=== PATIENT | female | born 1990 | race Caucasian/White ===

== ENCOUNTER → 2018-04-17 | Outpatient (CLI) | payer OTHER ==
[~2018-04-17] MED LIST: ACHD5005 PO
--- NOTE | 2018-04-17 13:54 | Diagnostic Imaging Report ---
INDICATION: Palpable lump in the posterior right occipital region. TECHNIQUE: Multiple real-time grayscale sonographic images were obtained of the right occipital soft tissues in the area of palpable concern. CORRELATION STUDY: None. FINDINGS: Just deep to the subcutaneous tissues is an elongated oval-shaped peripherally hypoechoic nodule. Slight central echogenic focus is noted. Minimal central vascular blood flow. Imaging features favor probable small lymph node measuring 12 x 12 x 3 mm. IMPRESSION: 1. Palpable abnormality corresponds to a probable small lymph node. Followup evaluation should be based on clinical findings. Dictated by: Dictated on workstation # [id number]
== END ==
LOC: RAD 08:50
PROVIDERS: ATTEND Surgery
DX: R22.0 Localized swelling, mass and lump, head (principal)
CPT/HCPCS: 76536

== ENCOUNTER 2018-04-29 05:30 | Outpatient (CLI) | payer OTHER ==
[~2018-04-29] VITALS: Ht 160 cm; Wt 81.6 kg
[2018-05-02] MEDS ORDERED: ACHD5005 PO (09:08)
== END 2018-04-29 13:55 | disposition home or self-care (01) ==
LOC: PREOP 05:30
PROVIDERS: ATTEND Surgery
DX: Z01.818 Encounter for other preprocedural examination (principal)

== ENCOUNTER 2018-05-02 06:00 | Day surgery (SDC) | payer OTHER ==
[~2018-05-02] VITALS: Ht 160 cm; Wt 81.6 kg
--- OUTSIDE RECORDS SUMMARY | 2018-05-02 06:09 | XMS REPORT ---
Author Author CINDY POTTS [facility] eClinicalWorks Address Unknown Phone Unavailable Care Team Providers Care Framing Mechanic Name Role Phone CINDY POTTS CP Unavailable Allergies No Known Allergies Problems Problem Type Condition Code Onset Dates Condition Status Problem ADD (attention deficit disorder) F90.0 Active Problem Herpes B00.9 Active Problem Tension headache G44.209 Active Assessment Burning with urination R30.0 Active Medications No Known Medications Procedures Procedure Coding System Code Date URINE CULTURE/COLONY COUNT CPT-4 17064 Oct 24, 2015 URINALYSIS, AUTO, W/O SCOPE CPT-4 18773 Oct 24, 2015 Results Name Result Date Reference Range Unit Abnormality Flag UA LONG DIP (IN HOUSE) ----CALVIN ++ 20151024 ----NIT negative 20151024 ----Exp date Jul 201620151024 ----Lot # [id number] 20151024 ----SG >=1.030 20151024 ----KET negative 20151024 ----SANTOS negative 20151024 ----GLU negative 20151024 ----Odor no 20151024 ----pH 6.0 20151024 ----BLO ++ 20151024 ----URO 0.2 20151024 ----Protein + 20151024 ----Lot # [id number] [id number] ----Exp date Oct 201620151024 ----Clarity cloudy 20151024 ----Color yellow 20151024 CULTURE, URINE ----Result 1 Escherichia coli 20151024 A ----Urine Culture, Routine Final report [id number] A Summary Purpose eClinicalWorks Submission
--- OUTSIDE RECORDS SUMMARY | 2018-05-02 06:09 | XMS REPORT ---
Author CINDY Fay Organization eClinical[employer] Address Unknown Phone Unavailable Care Team Providers Care Jewel Bearing Broacher Name Role Phone CINDY POTTS Unavailable Allergies No Known Allergies Problems Problem Type Condition Code Onset Dates Condition Status Problem ADD (attention deficit disorder) F90.0 Active Problem Herpes B00.9 Active Problem Tension headache G44.209 Active Assessment Burning with urination R30.0 Active Medications Medication Code System Code Instructions Start Date End Date Status Dosage Adderall [facility] [address]-52 30 MG Orally one in am and one at noon one tablet Results No Known Results Summary Purpose eClinicalWorks Submission
--- OUTSIDE RECORDS SUMMARY | 2018-05-02 06:09 | XMS REPORT ---
Author Author CINDY POTTS [facility] Address [address] [place] [address] Care Team Providers Care Instrument Installer Name Role Phone CINDY POTTS Unavailable PROBLEMS Type Condition ICD9-CM Code [id number] Code Onset Dates Condition Status SNOMED Code Problem Anxiety F41.9 Active 40259402 Problem ADD (attention deficit disorder) F90.0 Active 739782245 Problem Tension headache G44.209 Active 159540600 Problem Herpes B00.9 Active 32667651 ALLERGIES Unknown Allergies SOCIAL HISTORY No smoking Hx information available PLAN OF CARE VITAL SIGNS MEDICATIONS Medication Instructions Dosage Frequency Start Date End Date Duration Status Adderall 20 mg Orally 2 times a day TAKE ONE TABLET BY MOUTH IN THE MORNING AND ONE TABLET AT NOON 12h 13 Oct, 2016 28 days Active RESULTS No Results PROCEDURES No Known procedures IMMUNIZATIONS No Known Immunizations
--- OUTSIDE RECORDS SUMMARY | 2018-05-02 06:09 | XMS REPORT ---
Author CINDY Fay Organization eClinicalWorks Address Unknown Phone Unavailable Care Team Providers Care Access Rep Name Role Phone CINDY POTTS Unavailable Allergies No Known Allergies Problems Problem Type Condition Code Onset Dates Condition Status Problem ADD (attention deficit disorder) F90.0 Active Problem Herpes B00.9 Active Problem Tension headache G44.209 Active Medications Medication Code System Code Instructions Start Date End Date Status Dosage Ceftin [facility] [address]-49 250 MG Orally Twice a day Oct 24, 2015 Nov 03, 2015 1 tablet Results No Known Results Summary Purpose eClinicalWorks Submission
--- OUTSIDE RECORDS SUMMARY | 2018-05-02 06:09 | XMS REPORT ---
Author Author CINDY POTTS [facility] eClinicalWorks Address Unknown Phone Unavailable Care Team Providers Care Feller Hand Name Role Phone CINDY POTTS CP Unavailable Allergies, Adverse Reactions, Alerts Substance Reaction Event Type Topamax taste buds altered/racing thoughts Drug Allergy Flagyl headache Drug Allergy Problems Problem Type Condition Code Onset Dates Condition Status Problem ADD (attention deficit disorder) F90.0 Active Problem Herpes B00.9 Active Problem Tension headache G44.209 Active Assessment Herpes B00.9 Active Assessment Tension headache G44.209 Active Assessment ADD (attention deficit disorder) F90.0 Active Medications Medication Code System Code Instructions Start Date End Date Status Dosage Adderall [facility] [address]-29 30 MG Orally one in am and one at noon one tablet Fiorinal [facility] [address]-84 50-325-40 MG Orally every 4 hrs Sep 14, 2015 1 capsule as needed Acyclovir [facility] [address]-04 200 MG Orally Three times a day 1 capsule Ibuprofen [facility] [address]-35 200 MG Orally every 6 hrs 1 tablet as needed Procedures Procedure Coding System Code Date COMPREHEN METABOLIC PANEL CPT-4 96998 Sep 14, 2015 ASSAY THYROID STIM HORMONE CPT-4 97478 Sep 14, 2015 COMPLETE CBC W/AUTO DIFF WBC CPT-4 52090 Sep 14, 2015 VENIPUNCT, ROUTINE* CPT-4 45741 Sep 14, 2015 Office Visit, New Pt., Level 4 CPT-4 25154 Sep 14, 2015 Vital Signs Date/Time: Sep 14, 2015 Temperature 98.2 F Weight 200.5 lbs Height 65.7 in BMI 32.65 Index Blood Pressure Diastolic 82 mmHg Blood Pressure Systolic 126 mmHg Cardiac Monitoring Heart Rate 92 bpm Results Name Result Date Reference Range Unit Abnormality Flag CBC ----Lymphs 24 15208460 % ----Neutrophils 64 07060345 % ----Baso (Absolute) 0.0 53776832 0.0-0.2 x10E3/uL ----Hemoglobin 13.4 99922005 11.1-15.9 g/dL ----Eos (Absolute) 0.1 69716043 0.0-0.4 x10E3/uL ----Hematocrit 41.0 39244746 34.0-46.6 % ----Monocytes(Absolute) 0.7 48106865 0.1-0.9 x10E3/uL ----MCV 83 78326854 79-97 fL ----Lymphs (Absolute) 1.7 82131458 0.7-3.1 x10E3/uL ----MCH 27.2 73873300 26.6-33.0 pg ----Neutrophils (Absolute) 4.6 42393487 1.4-7.0 x10E3/uL ----MCHC 32.7 46559361 31.5-35.7 g/dL ----Immature Granulocytes 0 90992154 % ----Basos 0 20667882 % ----RDW 13.5 22060318 12.3-15.4 % ----Immature Grans (Abs) 0.0 39056746 0.0-0.1 x10E3/uL ----WBC 7.2 21211351 3.4-10.8 x10E3/uL ----Platelets 248 41634601 150-379 x10E3/uL ----Eos 2 50886750 % ----RBC 4.93 07122317 3.77-5.28 x10E6/uL ----Monocytes 10 01864231 % CMP ----Globulin, Total 2.8 76657488 1.5-4.5 g/dL ----eGFR If Africn Am 92 73651104 >59 mL/min/1.73 ----eGFR If NonAfricn Am 80 92986263 >59 mL/min/1.73 ----Albumin, Serum 4.5 34222385 3.5-5.5 g/dL ----Sodium, Serum 139 00612710 134-144 mmol/L ----Protein, Total, Serum 7.3 42191081 6.0-8.5 g/dL ----BUN/Creatinine Ratio 9 99918489 8-20 ----Calcium, Serum 9.6 99203241 8.7-10.2 mg/dL ----AST (SGOT) 19 20150914 0-40 IU/L ----Glucose, Serum 91 20150914 65-99 mg/dL ----Alkaline Phosphatase, S 122 20150914 39-117 IU/L H ----Bilirubin, Total 0.2 20150914 0.0-1.2 mg/dL ----Creatinine, Serum 0.98 20150914 0.57-1.00 mg/dL ----A/G Ratio 1.6 20150914 1.1-2.5 ----BUN 9 20150914 6-20 mg/dL ----Carbon Dioxide, Total 29 20150914 18-29 mmol/L ----ALT (SGPT) 20 20150914 0-32 IU/L ----Potassium, Serum 4.5 20150914 3.5-5.2 mmol/L ----Chloride, Serum 97 20150914 97-108 mmol/L ROUTINE VENIPUNCTURE TSH ----TSH 3.480 01912970 0.450-4.500 uIU/mL Summary Purpose eClinicalWorks Submission
--- OUTSIDE RECORDS SUMMARY | 2018-05-02 06:09 | XMS REPORT ---
Author Author CINDY POTTS [facility] eClinicalWorks Address Unknown Phone Unavailable Care Team Providers Care Supervisor Core Shop Name Role Phone CINDY POTTS Unavailable Allergies No Known Allergies Problems Problem Type Condition Code Onset Dates Condition Status Problem ADD (attention deficit disorder) F90.0 Active Problem Herpes B00.9 Active Problem Tension headache G44.209 Active Assessment ADD (attention deficit disorder) F90.0 Active Medications Medication Code System Code Instructions Start Date End Date Status Dosage Adderall [facility] [address]-04 30 MG Orally one in am and one at noon 1 tablet Results No Known Results Summary Purpose eClinicalWorks Submission
--- OUTSIDE RECORDS SUMMARY | 2018-05-02 06:09 | XMS REPORT ---
Author CINDY Fay Organization eClinicalWorks Address Unknown Phone Unavailable Care Team Providers Care Plastics Fitter Name Role Phone CINDY POTTS CP Unavailable Allergies, Adverse Reactions, Alerts Substance Reaction Event Type Topamax taste buds altered/racing thoughts Drug Allergy Flagyl headache Drug Allergy Problems Problem Type Condition Code Onset Dates Condition Status Problem Tension headache G44.209 Active Problem ADD (attention deficit disorder) F90.0 Active Problem Anxiety F41.9 Active Assessment Anxiety F41.9 Active Assessment ADD (attention deficit disorder) F90.0 Active Problem Herpes B00.9 Active Assessment Piriformis syndrome, left G57.02 Active Medications Medication Code System Code Instructions Start Date End Date Status Dosage Irzqgsgdgc-Qssymps-Alfojapd [facility] 43104220417 50-325-40 MG TAKE ONE CAPSULE BY MOUTH EVERY 4 HOURS NEEDED. Adderall [facility] [address]-19 20 mg Orally 2 times a day TAKE ONE TABLET BY MOUTH IN THE MORNING AND ONE TABLET AT NOON Fiorinal [facility] [address]-70 50-325-40 MG Orally every 4 hrs Sep 14, 2015 1 capsule as needed BusPIRone HCl [facility] [address]-59 10 mg Orally Twice a day PRN Jul 16, 2016 1 tablet Acyclovir [facility] [address]-24 200 MG Orally Three times a day 1 capsule Ibuprofen [facility] [address]-68 200 MG Orally every 6 hrs 1 tablet as needed Procedures Procedure Coding System Code Date Office Visit, Est Pt., Level 4 CPT-4 72891 Jul 16, 2016 Vital Signs Date/Time: Jul 16, 2016 Cardiac Monitoring Heart Rate 94 bpm Weight 197.1 lbs Height 65.7 in BMI 32.10 Index Blood Pressure Diastolic 90 mmHg Blood Pressure Systolic 120 mmHg Results No Known Results Summary Purpose eClinicalWorks Submission
--- OUTSIDE RECORDS SUMMARY | 2018-05-02 06:09 | XMS REPORT ---
Author Author CINDY POTTS [facility] Address [address] [place] [address] Care Team Providers Care Form Tamper Operator Name Role Phone CINDY POTTS Unavailable PROBLEMS Type Condition ICD9-CM Code [id number] Code Onset Dates Condition Status SNOMED Code Problem Anxiety F41.9 Active 34172785 Problem Tension headache G44.209 Active 208416805 Problem ADD (attention deficit disorder) F90.0 Active 810475781 Problem Herpes B00.9 Active 51797439 ALLERGIES No Known Allergies SOCIAL HISTORY No smoking Hx information available PLAN OF CARE VITAL SIGNS MEDICATIONS No Known Medications RESULTS No Results PROCEDURES No Known procedures IMMUNIZATIONS No Known Immunizations
--- OUTSIDE RECORDS SUMMARY | 2018-05-02 06:09 | XMS REPORT ---
Author Author CINDY POTTS [facility] Address [address] [place] [address] Care Team Providers Care Experimental Mechanic Electrical Name Role Phone CINDY POTTS Unavailable PROBLEMS Type Condition ICD9-CM Code [id number] Code Onset Dates Condition Status SNOMED Code Problem Anxiety F41.9 Active 57766555 Problem Tension headache G44.209 Active 951481763 Problem ADD (attention deficit disorder) F90.0 Active 889709575 Problem Herpes B00.9 Active 34953191 ALLERGIES Unknown Allergies SOCIAL HISTORY No smoking Hx information available PLAN OF CARE VITAL SIGNS MEDICATIONS Medication Instructions Dosage Frequency Start Date End Date Duration Status Adderall 20 mg Orally 2 times a day TAKE ONE TABLET BY MOUTH IN THE MORNING AND ONE TABLET AT NOON 12h 28 days Active RESULTS No Results PROCEDURES No Known procedures IMMUNIZATIONS No Known Immunizations
[2018-05-02 06:15] VITALS: BP 122/89
[2018-05-02] MEDS ORDERED: ceFAZolin 2 GM IV Premixed 50 ML IV ONE (06:15)
[2018-05-02] MEDS: LACTATED RINGERS 1,000 ML IV PRN ×2 (06:34→08:41)
[2018-05-02] MEDS ORDERED: LIDOCAINE PF 2% 5 ML (XYLOCAINE) VIAL ONE (06:58)
[2018-05-02] MEDS ORDERED: proPOfol 200 MG/20 ML (DIPRIVAN) VIAL IV ONE (06:58)
[2018-05-02] MEDS ORDERED: DEXAMETHASONE 10 MG/ML (DECADRON) 1 ML VIAL ONE (06:58)
[2018-05-02] MEDS ORDERED: ONDANSETRON 4 MG/2 ML (SDV) Z0FRAN ONE (06:58)
[2018-05-02] MEDS ORDERED: fentaNYL INJECTION 100 MCG/2 ML AMP ONE (06:58)
[2018-05-02] MEDS ORDERED: MIDAZOLAM 2 MG/2 ML (VERSED) VIAL ONE (06:58)
[2018-05-02] MEDS ORDERED: SEVOFLURANE (ULTANE) 15 ML INHAL SOLN ONE ×6 (07:03→09:10)
[2018-05-02] MEDS ORDERED: FAMOTIDINE 20MG/2ML IV (PEPCID) IV ONE (07:15)
[2018-05-02] MEDS ORDERED: BUP/EPI 0.5% 1:200,000 (SENSORCAINE) 30 ML VIAL ONE (07:22)
--- NOTE | 2018-05-02 07:56 | Progress Note-Pre Operative ---
Pre-Operative Progress Note H&P Reviewed The H&P was reviewed, patient examined and no changes noted. Date Seen by Provider: Apr 15, 2018 Time Seen by Provider: 15:00 Date H&P Reviewed: May 02, 2018 Time H&P Reviewed: 07:56 Pre-Operative Diagnosis: 1. Lump-Right occipital region 2. Lump right leg DAVE MONCADA MD May 02, 2018 7:56 am
--- NOTE | 2018-05-02 09:07 | Operative Report ---
Operative Report Date of Procedure/Surgery May 02, 2018 Surgeon (s) DAVE MONCADA MD Tomography Technologist (s): N/A Post-Operative Diagnosis 1. 1 cm lump over the occipital region of the scalp on the right side 2. 1 cm subcutaneous lipoma over the right leg Procedure Performed Excision 2 Description of Procedure Anesthesia Type: General Estimated blood loss (mL): 150 Specimen(s) collected/removed Lump from the scalp. lipoma. Description of the Procedure Indication for the procedures: This lady presented with a 1 cm lump over the occipital region of the scalp on the right side, having the appearance of an enlarged lymph node by ultrasound. Due to symptoms, it was felt reasonable to excise it. During the visit, she requested excision of a long-standing, subcutaneous lipoma over the right leg. I agreed to do so. Informed consent was obtained after reviewing the operative details and complications of hematoma, wound infection and the potential for recurrence. Description of procedures: She was placed supine on the operative table and general anesthesia induced Ancef was administered intravenously as prophylaxis against wound infection. 1. Excision of lump right occipital region: After adequate antiseptic preparation, a 2 cm vertical incision was made and the lump excised. Hemostasis was achieved using a combination of leg lifts and cautery. The area was irrigated with saline and the incision closed using interrupted 4-0 nylon sutures. A compression dressing was then applied. 2. Excision of lipomaright leg: Preemptive analgesia was established using 0.5 percent Marcaine with epinephrine. A 1.5 cm vertical incision was made and the lipoma excised. Hemostasis was achieved using cautery and the incision closed using 4-0 Vicryl, in a subcuticular fashion. Steri-Strips were then applied. She tolerated the procedures well, was extubated in the operating room and taken to recovery room in a stable condition. Findings of the Procedure See op report Allergies and Home Medications Allergies Coded Allergies: No Known Drug Allergies (Unverified , 04/29/18) Home Medications No Active Prescriptions or Reported Meds Patient Home Medication List Home Medication List Reviewed: Yes DAVE MONCADA MD May 02, 2018 9:07 am
[2018-05-02] MEDS ORDERED: ACHD5005 PO (09:08)
--- NOTE | 2018-05-02 09:09 | Discharge Inst-Simple/Standard ---
Discharge Inst-Standard Discharge Medications New, Converted or Re-Newed RX: RX on Chart Patient Instructions/Follow Up Plan of Care/Instructions/FU: Dressing over the scalp to stay intact for 48 hours and may be replaced with a Band-Aid thereafter. Follow-up with my nurse in 10 days for suture removal Activity as Tolerated: Yes Discharge Diet: No Restrictions DAVE MONCADA MD May 02, 2018 9:08 am
[2018-05-02] MEDS ORDERED: morphine INJ 10 MG/ML 1ML (SYR OR VIAL) IVP PRN (09:30)
[2018-05-02] MEDS ORDERED: ONDANSETRON 4 MG/2 ML (SDV) Z0FRAN IVP PRN (09:30)
[2018-05-02] MEDS ORDERED: MEPERIDINE (DEMEROL) INJ 50 MG/ML IVP PRN (09:30)
[2018-05-02 10:00] VITALS: BP 118/82
--- NOTE | 2018-05-02 10:02 | Anesthesia-General Post-Op ---
General Patient Condition Mental Status/LOC: Same as Preop Cardiovascular: Satisfactory Nausea/Vomiting: Absent Respiratory: Satisfactory Pain: Controlled Complications: Absent Post Op Complications Complications None Follow Up Care/Instructions Patient Instructions None needed. Anesthesia/Patient Condition Patient Condition Patient is doing well, no complaints, stable vital signs, no apparent adverse anesthesia problems. No complications reported per nursing. D/C home per [facility] Criteria: No DIANA BAEZ CRNA May 02, 2018 10:02
[2018-05-02 10:30] VITALS: BP 134/84
[2018-05-02 11:00] VITALS: BP 117/80
[2018-05-02] MEDS ORDERED: HYDROcodone/APAP 5 MG/325 MG (LORTAB) TAB PO ONE (11:00)
[2018-05-02 11:10] VITALS: BP 117/80
== END 2018-05-02 11:10 | disposition home or self-care (01) ==
LOC: SDC 06:00
PROVIDERS: ATTEND Surgery
DX: R22.0 Localized swelling, mass and lump, head (principal); D17.23 Benign lipomatous neoplasm of skin and subcutaneous tissue of right leg
CPT/HCPCS: 84703; 87081

== ENCOUNTER 2022-07-09 17:01 | Emergency (ER) | payer BC, OTHER ==
[~2022-07-09] VITALS: Ht 160 cm; Wt 106.5 kg
[2022-07-09] MEDS ORDERED: FAMOTIDINE 20 MG (PEPCID) TABLET PO STA (17:14)
[2022-07-09] MEDS ORDERED: diphenhydrAMINE 50 MG/ML INJ (BENADRYL) IVP STA (17:14)
[2022-07-09] MEDS ORDERED: EPINEPHrine INJECTION 1 MG/ML AMP SC STA (17:14)
--- NOTE | 2022-07-09 17:22 | ED General ---
General Chief Complaint: Allergic Reaction Stated Complaint: LIP SWELLING Source of Information: Patient History of Present Illness Date Seen by Provider: Jul 09, 2022 Time Seen by Provider: 17:05 Initial Comments 32-year-old female presenting with complaints of swelling to her upper lip that started around 1 PM. She denies any new medications, food, soaps, detergents, make-up. She states that she was eating some popcorn about 15 to 20 minutes before she noticed lip swelling. She had tried washing her face with her normal soaps but it did not help either. She took 25 mg of Benadryl and then went to urgent care. Urgent care gave her Depo-Medrol shot as well as oral steroid. Patient reports that the swelling to her lip continued to increase so the advised her to come to the emergency department. She denies having difficulty swallowing, shortness of breath, tongue swelling, trouble speaking, wheezing. Timing/Duration: 4-6 Hours Severity: Mild Associated Systoms: No Chest Pain, No Cough, No Diaphoresis, No Fever/Chills, No Headaches, No Loss of Appetite, No Malaise, No Nausea/Vomiting, No Rash, No Seizure, No Shortness of Air, No Syncope, No Weakness Allergies and Home Medications Allergies Coded Allergies: No Known Drug Allergies (Unverified , 04/29/18) Patient Home Medication List Home Medication List Reviewed: Yes Epinephrine (Epipen 2-Eduardo) 0.3 Mg/0.3 Ml Auto.injct, 0.3 MG IJ ONCE PRN for angioedema Prescribed by: KJ WATKINS on 07/09/221928 Hydrocodone Bit/Acetaminophen (Lortab 5 Mg Tablet) 1 Tab Tab, 1-2 TAB PO 4-6HR PRN for PAIN Prescribed by: DAVE MONCADA on 05/02/18 0908 Prednisone (Prednisone) 20 Mg Tab, 40 MG PO DAILY Prescribed by: KJ WATKINS on 07/09/221928 Review of Systems Review of Systems Constitutional: No chills, No fever EENTM: see HPI Respiratory: No cough, No short of breath, No stridor, No wheezing Cardiovascular: no symptoms reported Gastrointestinal: No abdominal pain, No nausea, No vomiting Genitourinary: no symptoms reported Musculoskeletal: no symptoms reported Skin: see HPI Psychiatric/Neurological: Anxiety; Denies Headache, Denies Weakness Hematologic/Lymphatic: No Symptoms Reported Immunological/Allergic: no symptoms reported Past Zplutlj-Cqhycj-Jvvwvl Hx Seasonal Allergies Seasonal Allergies: No Past Medical History Reproductive Disorders: No Female Reproductive Disorders: Denies Sexually Transmitted Disease: No HIV/AIDS: No Loss of Vision: Bilateral Hearing Impairment: Denies Adverse Reaction/Blood Tranf: No (N/A) Physical Exam Vital Signs Vital Signs - First Documented 07/09/22 07/09/22 17:10 19:35 Temp 36.9 Pulse 92 Resp 16 B/P (MAP) 184/113 (136) Pulse Ox 100 O2 Delivery Room Air Capillary Refill : Height, Weight, BMI Height: 5'3.00" Weight: 180lbs. 0.0oz. 81.851783lz; 31.9 BMI Method: General Appearance: No Apparent Distress, WD/WN HEENT: PERRL/EOMI, Pharynx Normal, Moist Mucous Membranes, Other (swelling to right side of upper lip. mild swelling to lateral right eye) Neck: Full Range of Motion, Normal Inspection, Non Tender, Supple Respiratory: Chest Non Tender, Lungs Clear, Normal Breath Sounds, No Accessory Muscle Use, No Respiratory Distress Cardiovascular: Regular Rate, Rhythm, Normal Peripheral Pulses Gastrointestinal: Normal Bowel Sounds, No Pulsatile Mass, Non Tender, Soft Rectal: Deferred Back: No CVA Tenderness, No Vertebral Tenderness Extremity: Normal Capillary Refill, Normal Inspection, No Pedal Edema Neurologic/Psychiatric: Alert, Oriented x3, sr. payroll processor II-XII Norm as Tested Skin: Normal Color, Warm/Dry Progress/Results/Core Measures Suspected Sepsis SIRS Temperature: Pulse: Respiratory Rate: Blood Pressure / Mean: Results/Orders My Orders Orders - KJ WATKINS MD Ed Iv/Invasive Line Start (07/09/22 17:14) Diphenhydramine Injection (Benadryl Inje (07/09/22 17:14) Dexamethasone Injection (Decadron Inje (07/09/22 17:14) Famotidine Tablet (Pepcid Tablet) (07/09/22 17:14) Epinephrine 1 Mg Injection (Adrenalin I (07/09/22 17:14) Vital Signs/I&O 07/09/22 07/09/22 07/09/22 07/09/22 17:10 17:32 17:45 19:35 Temp 36.9 Pulse 92 86 111 Resp 16 20 B/P (MAP) 184/113 (136) 145/70 145/70 (95) 121/65 Pulse Ox 100 96 O2 Delivery Room Air Capillary Refill : Progress Note #1: Progress Note Since she only had 25 mg of Benadryl will give additional 50 mg IV. Given additional 10 mg of IV dexamethasone. Subcutaneous epinephrine 0.5 mg x 1. Pepcid 20 mg p.o. Progress Note #2: Time: 19:15 Progress Note Patient had significant improvement in her swelling and symptoms since being treated here in the ED. She was continuing to feel improved and had no difficulty with swallowing or breathing. Counseled on follow-up and return precautions. Advised to continue with the steroids and antihistamines for at least the next 3 days. Also given a prescription for an EpiPen and advised to check with her primary as they may want to do allergy testing to try and see if they could determine what had caused her reaction. Departure Impression Primary Impression: Angioedema of lips Qualified Codes: T78.3XXA - Angioneurotic edema, initial encounter Disposition: 01 HOME, SELF-CARE Condition: Improved Departure-Patient Inst. Decision time for Depature: 19:25 Referrals: SHAILESH ARGUELLO MD (PCP) Primary Care Physician ENRIQUE ARREOLA (Family) Primary Care Physician Patient Instructions: Angioedema (DC) Add. Discharge Instructions: Treat with continued steroids and anti-histamines. Benadryl 25 mg every 3-4 hours or 50 mg every 6 hours as needed for swelling/itching for next 3 days. Pepcid (Famotidine) 20 mg by mouth twice a day for next 3 days Fill prescription for Epi-pen (Epinephrine shot) so you can have that available if you have swelling getting worse despite medicine or have trouble swallowing/breathing. Follow up with your primary care as they may want to have you get allergy testing to see if they might find what caused the symptoms today. All discharge instructions reviewed with patient and/or family. Voiced understanding. Scripts Epinephrine (Epipen 2-Eduardo) 0.3 Mg/0.3 Ml Auto.injct 0.3 MG IJ ONCE PRN for angioedema for 2 Days, #0.6 ML 0 Refills Prov: KJ WATKINS MD 07/09/22 Prednisone (Prednisone) 20 Mg Tab 40 MG PO DAILY for angioedema for 3 Days, #6 TAB 0 Refills Prov: KJ WATKINS MD 07/09/22 KJ WATKINS MD Jul 09, 2022 17:22
[2022-07-09] MEDS ORDERED: EPIN0.3P3 IJ (19:29)
[2022-07-09] MEDS ORDERED: PRD20T PO (19:29)
[2022-07-09 19:35] VITALS: BP 121/65
== END 2022-07-09 19:40 | disposition home or self-care (01) ==
LOC: EDUNIT# 17:01 → ER FS 17:02
DX: T78.3XXA Angioneurotic edema, initial encounter (principal)
CPT/HCPCS: 96372; 96374; 96375